=== PATIENT | female | born 1990 ===

== ENCOUNTER → 2016-11-06 | Outpatient (CLI) | payer MEDICAID | LOC: RAD 14:07 | PROVIDERS: ATTEND Obstetrics & Gynecology | DX: O09.292 Supervision of pregnancy with other poor reproductive or obstetric history, second trimester (principal); I67.83 Posterior reversible encephalopathy syndrome; Z98.891 History of uterine scar from previous surgery; Z3A.19 19 weeks gestation of pregnancy | CPT/HCPCS: 76805 ==